=== PATIENT | female | born 1990 | race Native Hawaiian/Other Pacific Islander ===

== ENCOUNTER 2016-05-28 13:42 | Outpatient (CLI) | payer OTHER ==
[2016-05-28 14:07] LABS: PLATELET COUNT 324 K/uL (152-353)
[2016-05-28 16:26] LABS: POTASSIUM 4.6 mmol/L (3.6-5.2); SODIUM 139 mmol/L (136-145)
== END 2016-05-28 19:19 | disposition home or self-care (01) ==
LOC: LAB 13:42
PROVIDERS: Nurse Practitioner Family
DX: Z00.00 Encounter for general adult medical examination without abnormal findings (principal); E66.8 Other obesity; R20.2 Paresthesia of skin; F32.89 Other specified depressive episodes; F41.8 Other specified anxiety disorders
CPT/HCPCS: 80053; 80061; 83036; 84436; 84443; 85027

== ENCOUNTER 2017-08-05 14:35 | Outpatient (CLI) | payer OTHER ==
[2017-08-05 15:20] LABS: PLATELET COUNT 358 K/uL (152-353)
[2017-08-05 15:58] LABS: POTASSIUM 4.8 mmol/L (3.6-5.2)
== END 2017-08-05 22:44 | disposition home or self-care (01) ==
LOC: LAB 14:35
PROVIDERS: Nurse Practitioner Family
DX: R53.83 Other fatigue (principal); R00.2 Palpitations; F41.8 Other specified anxiety disorders; E78.00 Pure hypercholesterolemia, unspecified
CPT/HCPCS: 80053; 80061; 83036; 84436; 84443; 85027